=== PATIENT | male | born 1980 | race African-American/Black ===

== ENCOUNTER 2017-04-03 10:52 | Inpatient (IN) | payer MEDICAID ==
[~2017-04-03] VITALS: Ht 188 cm; Wt 75.0 kg
[2017-04-03] MEDS ORDERED: IOHEXOL-300 100 ML BOTTLE ONE (14:07)
[2017-04-03] MEDS ORDERED: SODIUM CHLORIDE 0.9% 10ML VIAL ONE (14:07)
[2017-04-03 14:38] LABS: CLARITY URINE CLEAR (CLEAR); COLOR URINE YELLOW (YELLOW); GLUCOSE URINE TRACE (NEGATIVE); KETONES URINE NEGATIVE (NEGATIVE); LEUKOCYTE ESTERASE URINE NEGATIVE (NEGATIVE); NITRITE URINE NEGATIVE (NEGATIVE); OCCULT BLOOD URINE NEGATIVE (NEGATIVE); PH URINE 7.5 (4.5-8.0); PROTEIN URINE NEGATIVE (NEGATIVE); SPECIFIC GRAVITY URINE 1.011 (1.005-1.030); UROBILINOGEN URINE 0.2 E.U./dL (0.2-1.0)
[2017-04-03 14:41] LABS: BASOPHILS % 0.6 % (0.0-2.0); HEMATOCRIT. 47.6 % (42.0-52.0); MEAN CORPUSCULAR HEMOGLOBIN 30.4 pg (28.0-32.0); MEAN CORPUSCULAR VOLUME 85.3 fL (80.0-94.0); MEAN PLATELET VOLUME 9.7 fl (7.4-10.4); MONOCYTES % 10.2 % (2.0-8.0); NEUTROPHILS % 41.2 % (40.0-76.0); PLATELET 154 x1000/uL (130-400); RED BLOOD CELL COUNT 5.58 mill/uL (4.7-6.1); RED CELL DISTRIBUTION WIDTH 12.9 % (11.6-14.6)
[2017-04-03 14:50] LABS: AMMONIA 57 uMol/L (<32)
[2017-04-03 14:52] LABS: CARBON DIOXIDE 29 mEq/L (21-32); CHLORIDE 104 mEq/L (98-107); ETHANOL BLOOD < 10 mg/dL
[2017-04-03 14:55] LABS: TROPONIN I < 0.02 ng/mL (0.00-0.04)
[2017-04-03 14:57] LABS: D-DIMER < 0.19 mg/L FEU (<0.50); INR 1.1
[2017-04-03] MEDS ORDERED: GABAPENTIN 100MG CAPSULE PO ONE (15:00)
[2017-04-03] MEDS ORDERED: ACETAMINOPHEN 325MG TABLET PO ONE (15:00)
[2017-04-03 15:16] LABS: *AMPHETAMINES SCREEN URINE NEGATIVE (NEGATIVE); *BARBITURATES SCREEN URINE NEGATIVE (NEGATIVE); *BENZODIAZEPINES SCREEN URINE NEGATIVE (NEGATIVE); *COCAINE SCREEN URINE NEGATIVE (NEGATIVE); CANNABINOID URINE SCREEN NEGATIVE (NEGATIVE); METHADONE URINE SCREEN NEGATIVE (NEGATIVE); OPIATES URINE SCREEN NEGATIVE (NEGATIVE); PHENCYCLIDINE URINE SCREEN NEGATIVE (NEGATIVE)
[2017-04-03] MEDS ORDERED: CLONIDINE 0.1MG TABLET PO PRN (18:15)
[2017-04-03] MEDS ORDERED: DIPHENHYDRAMINE 50MG/ML VIAL IV PRN (18:15)
[2017-04-03] MEDS ORDERED: ACETAMINOPHEN 325MG TABLET PO PRN (18:15)
[2017-04-03] MEDS ORDERED: IPRATROPIUM/ALBUTEROL 0.5-3(2.5)MG/3ML NEB INH PRN (18:15)
[2017-04-03] MEDS ORDERED: ONDANSETRON HCL 4MG/2ML VIAL IV PRN (18:15)
[2017-04-03] MEDS: LACTULOSE 20G/30ML UDC PO SCH (22:00)
[2017-04-03 22:37] VITALS: BP 135/95
[2017-04-03 23:37] VITALS: BP 135/95
[2017-04-04 04:00] VITALS: BP 124/75
[2017-04-04] MEDS: LACTULOSE 20G/30ML UDC PO SCH ×3 (06:22→21:27)
[2017-04-04 06:27] LABS: BASOPHILS % 0.3 % (0.0-2.0); EOSINOPHILS % 2.1 % (0.0-5.0); HEMOGLOBIN. 16.6 g/dL (14.0-18.0); LYMPHOCYTES % 50.1 % (20.0-50.0); MEAN CORPUSCULAR HEMOGLOBIN 30.4 pg (28.0-32.0); MEAN CORPUSCULAR VOLUME 86.3 fL (80.0-94.0); MEAN PLATELET VOLUME 9.6 fl (7.4-10.4); MONOCYTES % 10.5 % (2.0-8.0); PLATELET 153 x1000/uL (130-400); RED BLOOD CELL COUNT 5.45 mill/uL (4.7-6.1); RED CELL DISTRIBUTION WIDTH 12.9 % (11.6-14.6)
[2017-04-04 07:24] LABS: CARBON DIOXIDE 27 mEq/L (21-32); CHLORIDE 104 mEq/L (98-107); HDL CHOLESTEROL 48 mg/dL (40-59); LDL CHOLESTEROL 85 mg/dL (5-100); TROPONIN I < 0.02 ng/mL (0.00-0.04)
[2017-04-04 08:00] VITALS: BP 122/91
[2017-04-04] MEDS: HYDROCODONE/ACETAMINOPHEN 5/325MG TABLET PO PRN ×2 (08:34→21:29)
[2017-04-04 12:00] VITALS: BP 114/74
[2017-04-04] MEDS ORDERED: POTASSIUM CHLORIDE 20MEQ TABLET SR PO SCH (12:00)
[2017-04-04 16:00] VITALS: BP 114/63
[2017-04-04 20:00] VITALS: BP 111/76
[2017-04-05] VITALS (8 sets, daily range): BP systolic 115–124; BP diastolic 76–79
[2017-04-05] MEDS: LACTULOSE 20G/30ML UDC PO SCH ×2 (06:06→13:45)
[2017-04-05 07:10] LABS: AMMONIA 45 uMol/L (<32)
[2017-04-05 07:50] LABS: CARBON DIOXIDE 26 mEq/L (21-32); CHLORIDE 104 mEq/L (98-107)
[2017-04-05 08:28] LABS: BASOPHILS % 0.4 % (0.0-2.0); EOSINOPHILS % 1.5 % (0.0-5.0); HEMATOCRIT. 47.7 % (42.0-52.0); HEMOGLOBIN. 16.7 g/dL (14.0-18.0); LYMPHOCYTES % 46.2 % (20.0-50.0); MEAN CORPUSCULAR HEMOGLOBIN 30.4 pg (28.0-32.0); MEAN CORPUSCULAR VOLUME 86.8 fL (80.0-94.0); MEAN PLATELET VOLUME 9.6 fl (7.4-10.4); MONOCYTES % 9.3 % (2.0-8.0); NEUTROPHILS % 42.6 % (40.0-76.0); PLATELET 147 x1000/uL (130-400); RED CELL DISTRIBUTION WIDTH 12.8 % (11.6-14.6)
== END 2017-04-05 17:45 | disposition home or self-care (01) | DRG 279 ==
LOC: ER 14:12 → 5WST 18:26 → EDBEDREQSVC 18:27 → EDBEDREQTM 18:27 → EDBEDREQ 18:27 → ENRESERV 21:34
PROVIDERS: ADMIT Internal Medicine; ATTEND Internal Medicine
DX: K72.90 Hepatic failure, unspecified without coma (principal); E72.20 Disorder of urea cycle metabolism, unspecified; D72.819 Decreased white blood cell count, unspecified; K76.0 Fatty (change of) liver, not elsewhere classified; E87.6 Hypokalemia; I10 Essential (primary) hypertension; R00.1 Bradycardia, unspecified; Z87.440 Personal history of urinary (tract) infections
CPT/HCPCS: 36415; 70450; 70551; 71010; 74177; 76705; 80053; 80061; 80076; 80305; 81001; 82140; 82962; 83036; 83880; 84484; 85025; 85379; 85610; 85651; 87040; 87086; 93005; 93306; 99285; A4216; G0482; J2405; Q9967